=== PATIENT | male | born 1985 | race Caucasian/White ===

== ENCOUNTER 2024-07-06 19:59 | Emergency (ER) | payer MEDICAID ==
[~2024-07-06] VITALS: Ht 177.8 cm; Wt 72.6 kg
[2024-07-06] MEDS ORDERED: LIDOCAINE VISCOUS 2% UD 15 ML UDC ONE (21:24)
[2024-07-06] MEDS ORDERED: FAMOTIDINE (20 MG) 20 MG TABLET ONE (21:24)
[2024-07-06] MEDS ORDERED: MAG HYDROX/AL HYDROX/SIMETH 30 ML UDC ONE (21:24)
[2024-07-06 21:26] LABS: EOSINOPHILS # (AUTO) 0.1 K/uL (0.0-0.7); MONOCYTES # (AUTO) 0.6 K/uL (0.1-1.30)
[2024-07-06] MEDS: MAG HYDROX/AL HYDROX/SIMETH 30 ML UDC PO ONE (21:30)
[2024-07-06] MEDS: LIDOCAINE VISCOUS 2% UD 15 ML UDC MM ONE (21:30)
[2024-07-06] MEDS: FAMOTIDINE (20 MG) 20 MG TABLET PO ONE (21:30)
[2024-07-06 21:34] LABS: CARBON DIOXIDE 29 mmol/L (21-32); CHLORIDE 104 mmol/L (98-107); CREATININE 0.9 mg/dL (0.6-1.3); GLUCOSE 85 mg/dL (74-106); POTASSIUM 3.7 mmol/L (3.5-5.1); SODIUM SERUM 141 mmol/L (136-145); UREA NITROGEN, BLOOD 22 mg/dL (7-18)
[2024-07-06 21:46] LABS: BASOPHILS % (AUTO) 0.5 % (0.0-2.0); HEMATOCRIT 40 % (39-51); LYMPHOCYTES # (AUTO) 2.3 K/uL (0.8-4.8); LYMPHOCYTES % (AUTO) 29.2 % (20.0-44.0); MEAN CORPUSCULAR HEMOGLOBIN 29 PG (26.0-33.0); MEAN CORPUSCULAR HGB CONC 36 g/dl (31.0-36.0); MEAN CORPUSCULAR VOLUME 81 fL (80-96); MONOCYTES % (AUTO) 7.9 % (2.0-12.0); NEUTROPHILS # (AUTO) 4.8 K/uL (1.8-8.9); NEUTROPHILS % (AUTO) 61.4 % (43.0-81.0); PLATELET COUNT (AUTO) 218 K/uL (150-450); RED BLOOD CELL COUNT(AUTO) 4.86 MIL/uL (4.5-6.0); WHITE BLOOD COUNT (AUTO) 7.8 K/uL (4.3-11.0)
[2024-07-06] MEDS ORDERED: PANT40TA49 PO (22:11)
[2024-07-06 22:21] VITALS: BP 153/91; TEMP 98; O2SAT 98
== END 2024-07-06 22:20 | disposition home or self-care (01) ==
LOC: ER 20:14
DX: R07.89 Other chest pain (principal); R10.10 Upper abdominal pain, unspecified
CPT/HCPCS: 36415; 71045-TC; 80048-TC; 83690-TC; 84484-TC; 85025-TC